=== PATIENT | male | born 1960 | race Caucasian/White ===

== ENCOUNTER 2017-11-29 00:45 | Emergency (ER) | payer OTHER ==
[~2017-11-29] VITALS: Ht 175.3 cm; Wt 77.1 kg
--- NOTE | 2017-11-29 01:03 | NUR ---
PT BIBSELF C/O LEFT FLANK PAIN X3 HRS [employer]. PT AOX3 RR EVEN AND UNLABORED. NO SOB NOTED. NAD NOTED. NO NVD AT THIS TIME. PT GOWNED AND PLACED ON MONITOR WAITING FOR MD COLUNGA.
[2017-11-29] MEDS ORDERED: ONDANSETRON HCL/PF 4 MG/2 ML VIAL ONE (01:04)
[2017-11-29] MEDS ORDERED: HYDROMORPHONE INJ 2 MG/ML DISP.SYRIN ONE (01:05)
--- NOTE | 2017-11-29 01:11 | NUR ---
18G RIGHT AC IV STARTED, BLOOD SAMPLE OBTAINED AND SENT TO LAB. MEDICATED PT ORDERED
[2017-11-29 01:16] LABS: BASOPHILS % (AUTO) 0.3 % (0.0-2.0); EOSINOPHILS % (AUTO) 1.8 % (0.0-6.0); HEMATOCRIT 37 % (39-51); HEMOGLOBIN 12.2 g/dL (13.5-17.5); LYMPHOCYTES # (AUTO) 1.4 /CMM (0.8-4.8); LYMPHOCYTES % (AUTO) 20.4 % (20.0-44.0); MEAN CORPUSCULAR HGB CONC 33 g/dl (31.0-36.0); MEAN CORPUSCULAR VOLUME 87 fL (80-96); MONOCYTES # (AUTO) 0.6 /CMM (0.1-1.30); MONOCYTES % (AUTO) 8.2 % (2.0-12.0); NEUTROPHILS # (AUTO) 4.7 /CMM (1.8-8.9); NEUTROPHILS % (AUTO) 69.3 % (43.0-81.0); PLATELET COUNT (AUTO) 261 /CMM (150-450); RDW COEFFICIENT OF VARIATION 16.1 (11.5-15.0); RED BLOOD CELL COUNT(AUTO) 4.22 MIL/uL (4.5-6.0); WHITE BLOOD COUNT (AUTO) 6.8 K/uL (4.3-11.0)
[2017-11-29 01:17] LABS: APPEARANCE,URINE CLEAR (CLEAR); BILIRUBIN,URINE NEGATIVE (NEGATIVE); BLOOD, URINE 1+ Ery/uL (NEGATIVE); COLOR,URINE YELLOW (YELLOW); KETONES,URINE NEGATIVE (NEGATIVE); LEUKOCYTE ESTERASE ,URINE NEGATIVE (NEGATIVE); NITRITE, URINE NEGATIVE (NEGATIVE); PH,URINE 6.5 (5.0-8.0); PROTEIN,URINE NEGATIVE (NEGATIVE); UGLUCOSE NEGATIVE (NEGATIVE); UROBILINOGEN,URINE 0.2 EU/dL (0.2)
[2017-11-29] MEDS ORDERED: TAMSULOSIN 0.4 MG CAP.SR.24H ONE (01:24)
[2017-11-29] MEDS ORDERED: KETOROLAC TROMETHAMINE INJ 30 MG/ML VIAL ONE (01:24)
[2017-11-29 01:28] LABS: CALCIUM, SERUM 9.4 mg/dL (8.5-10.1); CREATININE 1.4 mg/dL (0.6-1.3); POTASSIUM 3.3 mmol/L (3.5-5.1)
[2017-11-29 01:30] LABS: BACTERIA,URINE Few /HPF (None Seen); SQUAMOUS EPITHELIAL CELL,UR Rare /HPF (None Seen); WBC,URINE 0-2 /HPF (0-3)
[2017-11-29] MEDS ORDERED: KETOROLAC TROMETHAMINE INJ 30 MG/ML VIAL IV ONE (01:30)
[2017-11-29] MEDS ORDERED: TAMSULOSIN 0.4 MG CAP.SR.24H PO ONE (01:30)
[2017-11-29] MEDS ORDERED: IV NS 0.9% 1,000 ML BAG IV ONE (01:30)
[2017-11-29] MEDS ORDERED: ONDANSETRON HCL/PF 4 MG/2 ML VIAL IVP ONE (01:30)
[2017-11-29] MEDS ORDERED: HYDROMORPHONE INJ 2 MG/ML DISP.SYRIN IV ONE (01:30)
--- NOTE | 2017-11-29 02:15 | NUR ---
pt ok to discharge per dr sesay. IV removed. Catheter intact and site benign. Pressure and 4x4 applied to site. No bleeding noted.Patient discharged to home in stable condition. Written and verbal after care instructions given. Patient verbalizes understanding of instruction.Patient is awake and alert to self, day, and place. pt ambulatory with a steady gait
--- NOTE | 2017-11-29 02:21 | NUR ---
MD MADE AWARE OF PT BP, NNO, PT D/C.
[2017-11-29 02:25] VITALS: BP 180/99
== END 2017-11-29 02:26 | disposition home or self-care (01) ==
LOC: ER 00:48
DX: N23 Unspecified renal colic (principal)
CPT/HCPCS: 36415; 80048-TC; 81000-TC; 85025-TC; 87086-TC; A4606; J1170; J1885; J2405; J7030; Z7610

== ENCOUNTER 2018-02-25 21:00 | Emergency (ER) | payer OTHER ==
[~2018-02-25] VITALS: Ht 175.3 cm; Wt 73.5 kg
--- NOTE | 2018-02-25 21:45 | NUR ---
Pt BIBSELF FROM THE STREET. Pt IS HOMELESS. Pt IS C/O SUICIDAL IDEATIONS WITH PLANS TO OVERDOSE ON MEDS. Pt IS PLACED IN ER BED 6 FOR ER OBERVATION FOR SAFETY. Pt LYING COMFORTABLY IN BED. NO S/S OF ACUTE DISTRESS OR SOB NOTED. VS STABE. WILL CONTINUE TO MONITOR Pt FOR SAFETY.
--- NOTE | 2018-02-25 22:05 | NUR ---
URINE SAMPLE COLLECTED.
[2018-02-25 22:39] LABS: BASOPHILS % (AUTO) 0.4 % (0.0-2.0); EOSINOPHILS % (AUTO) 4.4 % (0.0-6.0); HEMATOCRIT 37 % (39-51); HEMOGLOBIN 12.1 g/dL (13.5-17.5); LYMPHOCYTES # (AUTO) 1.2 /CMM (0.8-4.8); LYMPHOCYTES % (AUTO) 30.3 % (20.0-44.0); MEAN CORPUSCULAR HEMOGLOBIN 29 PG (26.0-33.0); MEAN CORPUSCULAR HGB CONC 33 g/dl (31.0-36.0); MEAN CORPUSCULAR VOLUME 89 fL (80-96); MONOCYTES # (AUTO) 0.5 /CMM (0.1-1.30); MONOCYTES % (AUTO) 12.6 % (2.0-12.0); NEUTROPHILS # (AUTO) 2.1 /CMM (1.8-8.9); NEUTROPHILS % (AUTO) 52.3 % (43.0-81.0); PLATELET COUNT (AUTO) 270 /CMM (150-450); RDW COEFFICIENT OF VARIATION 16.2 (11.5-15.0); RED BLOOD CELL COUNT(AUTO) 4.17 MIL/uL (4.5-6.0)
[2018-02-25 22:52] LABS: CALCIUM, SERUM 8.6 mg/dL (8.5-10.1); CARBON DIOXIDE 32 mmol/L (21-32); CHLORIDE 104 mmol/L (98-107); CREATININE 1.2 mg/dL (0.6-1.3); GLUCOSE 113 mg/dL (74-106); POTASSIUM 3.3 mmol/L (3.5-5.1); SODIUM SERUM 142 mmol/L (136-145); UREA NITROGEN, BLOOD 17 mg/dL (7-18)
[2018-02-25 22:56] LABS: ACETAMINOPHEN 0 ug/ml (10-30); ALANINE AMINOTRANSFERASE 25 U/L (12-78); ALBUMIN 3.4 g/dL (3.4-5.0); ALCOHOL, BLOOD < 3 mg/dL (0-0); ALKALINE PHOSPHATASE 92 U/L (46-116); ASPARTATE AMINOTRANSFERASE 22 U/L (15-37); BILIRUBIN,TOTAL 0.2 mg/dL (0.2-1.0); SALICYLATE 4.7 mg/dL (2.8-20.0)
--- NOTE | 2018-02-26 | NUR ---
patient resting in bed comfortably. no s/s of acute distress or sob noted. will continue to monitor pt for safety.
[2018-02-26 00:24] LABS: APPEARANCE,URINE SL CLOUDY (CLEAR); BILIRUBIN,URINE NEGATIVE (NEGATIVE); BLOOD, URINE NEGATIVE Ery/uL (NEGATIVE); COLOR,URINE YELLOW (YELLOW); KETONES,URINE NEGATIVE (NEGATIVE); LEUKOCYTE ESTERASE ,URINE TRACE (NEGATIVE); NITRITE, URINE NEGATIVE (NEGATIVE); PROTEIN,URINE NEGATIVE (NEGATIVE); UGLUCOSE NEGATIVE (NEGATIVE); UROBILINOGEN,URINE 0.2 EU/dL (0.2)
[2018-02-26 00:42] LABS: RBC,URINE 0-2 /HPF (0-2)
[2018-02-26 00:44] LABS: BACTERIA,URINE None seen /HPF (None Seen); CALCIUM OXALATE CRYSTALS,UR Moderate /HPF (None Seen); HYALINE CASTS, URINE Few /LPF (None Seen); MUCUS,URINE Few /LPF (None Seen); SQUAMOUS EPITHELIAL CELL,UR Few /HPF (None Seen)
--- NOTE | 2018-02-26 02:00 | NUR ---
pt asleep in bed, resting comfortably. no s/s of acute distress or sob noted. even and unlabored respirations noted with equal chest rise and fall. will continue to monitor pt for safety.
--- NOTE | 2018-02-26 04:00 | NUR ---
pt resting comfortably in bed. no s/s of acute distress or sob noted. even and unlabored respirations noted with equal chest rise and fall. will continue to monitor pt for safety.
[2018-02-26] MEDS ORDERED: POTASSIUM CHLORIDE 20 MEQ TAB.PRT.SR PO ONE ×2 (05:30→05:31)
--- NOTE | 2018-02-26 05:37 | NUR ---
kdur 20meq given po
--- NOTE | 2018-02-26 06:07 | NUR ---
Pt accepted at [facility] by Dr Richards pending normal KCL. # for report [id number]
--- NOTE | 2018-02-26 07:30 | NUR ---
Patient is resting comfortably in bed with eyes closed. Easily aroused. VSS
--- NOTE | 2018-02-26 08:15 | NUR ---
PROVIDED FOOD TRAY FOR PT.
--- NOTE | 2018-02-26 09:54 | NUR ---
CALLED [facility] FOR S TRANSPORT TO [place]. ETA: [id number] RUN #: [id number]
--- NOTE | 2018-02-26 10:33 | NUR ---
REPORT GIVEN TO SHAN FOR [facility] AT [facility]
[2018-02-26 11:15] VITALS: BP 126/99
== END 2018-02-26 11:48 ==
LOC: ER 21:02
DX: R45.851 Suicidal ideations (principal); F32.9 Major depressive disorder, single episode, unspecified; F41.9 Anxiety disorder, unspecified
CPT/HCPCS: 36415; 80048-TC; 80076-TC; 80305; 81000-TC; 84132-TC; 85025-TC; 87086-TC; A4606; G0480; Z7610